=== PATIENT | male | born 1985 | race Caucasian/White ===

== ENCOUNTER 2020-01-02 19:24 | Emergency (ER) | payer SELFPAY ==
[~2020-01-02] VITALS: Ht 188 cm; Wt 86.2 kg
--- NOTE | 2020-01-02 19:40 | NUR ---
ED Nurse Note: placed C-collar on patient.
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
[2020-01-02 20:02] VITALS: BP 121/68
[2020-01-02 20:20] VITALS: BP 131/72
--- NOTE | 2020-01-02 20:20 | NUR ---
AMA: SEE AMA FORM. AFTER ERMD PROVIDED CAREFUL EXPLAINING TO THE PATIENT THAT TRANSFER IS NEEDED FOR HIGHER LEVEL OF CARE, PT REQUESTED TO LEAVE AGAINST MEDICAL ADVICE, STATING HE DOES NOT WANT TO BE TRANSFERRED BY AMBULANCE. ERMD CAREFULLY EXPLAINED RISK OF LEAVING AGAINST MEDICAL ADVICE AND REFUSED FOR BLOOD DRAW OR ANY OTHER TREATMENT AT THIS TIME. NO MEDICAL DEVICES WERE INVOLVED AT THIS TIME. PT VERBALIZED UNDERSTANDING AND SIGNED AMA FORM AND STATED HE WILL VISIT [facility] BY HIMSELF. VSS, NAD, AAOX4, AMBULATORY UPON AMA.
== END 2020-01-02 20:20 | disposition left against medical advice (07) ==
LOC: EMR 19:41
DX: S12.300A Unspecified displaced fracture of fourth cervical vertebra, initial encounter for closed fracture (principal); S12.400A Unspecified displaced fracture of fifth cervical vertebra, initial encounter for closed fracture; V03.90XA Pedestrian on foot injured in collision with car, pick-up truck or van, unspecified whether traffic or nontraffic accident, initial encounter; Y92.9 Unspecified place or not applicable
CPT/HCPCS: 99282